=== PATIENT | female | born 1970 | race Caucasian/White ===

== ENCOUNTER 2018-10-31 16:55 | Emergency (ER) | payer OTHER, SELFPAY ==
[2018-10-31] VITALS (7 sets, daily range): BP systolic 142–154; BP diastolic 78–96; PULSE 91–110; RESP 10–18; TEMP 36.4; O2SAT 98–100; BMI 26.1
--- NOTE | 2018-10-31 17:23 | CT_ITS ---
STUDY: CT BRAIN WITHOUT CONTRAST REASON FOR EXAM: Female, 48 years old. Lightheaded. Syncope. RADIATION DOSAGE (If Supplied By Facility): CTDIvol = ( 44.99 ) mGy, DLP = ( 762.36 ) mGycm TECHNIQUE: Transaxial CT imaging of the brain was performed without administration of intravenous contrast material. Individualized dose optimization techniques were used for this CT. COMPARISON: No relevant priors. FINDINGS: Normal soft tissue structures. Normal calvarium. Normal size ventricles and extra-axial spaces for the patient's age. Normal white matter tracts of the cerebral hemispheres. Normal basal ganglia and thalami. Normal brainstem. Normal cerebellum. There is no intracranial hemorrhage. There are no findings of an acute ischemic infarction. Normal visualized paranasal sinuses. CT/Brain/Head without Contrast IMPRESSION: No acute intracranial process. Electronically Signed: Guadalupe Moore MD at 18:14 EDT Tel , Service support ,
--- NOTE | 2018-10-31 17:23 | RAD_ITS ---
STUDY: X-RAY CHEST REASON FOR EXAM: Female, 48 years old. Lightheadedness. TECHNIQUE: Single frontal view of the chest. COMPARISON: May 20, 2013 FINDINGS: There is no new focal consolidation. There is no significant interval change since the prior examination. Normal size heart. Normal mediastinum and aranza. Normal visualized pulmonary arteries. Normal visualized aortic arch and descending thoracic aorta. Normal visualized thoracic spine. Normal visualized ribs, clavicles, and shoulders. There is no demonstrated abnormality of the visualized soft tissue structures of the upper abdomen. RAD/Chest 1 View (Portable) IMPRESSION: No acute cardiopulmonary process. Electronically Signed: Guadalupe Moore MD at 17:36 EDT Tel , Service support ,
--- NOTE | 2018-10-31 17:23 | EKG12_ITS ---
Test Reason : SYNCOPE Blood Pressure : / mmHG Vent. Rate : 107 BPM Atrial Rate : 107 BPM P-R Int : 144 ms QRS Dur : 080 ms QT Int : 348 ms P-R-T Axes : 025 -05 026 degrees QTc Int : 464 ms Sinus tachycardia Moderate voltage criteria for LVH, may be normal variant Borderline ECG Confirmed by HANNAH DOYLE ([id number]), editor & co founder CHANO BROWN ([id number]) on 11/05/2018 2:48:49 PM Referred By: TARSHA Confirmed By:RAMSES DOYLE
[2018-10-31 18:05] LABS: Absolute Lymphocyte Count 2.12 X10^3/ul (0.83-4.51); Basophil# 0.05 X10^3/uL; Basophil% 0.5 % (0-1); Eosinophil# 0.05 X10^3/uL; Eosinophils% 0.5 % (0-5); Hematocrit 37.4 % (37-47); Hemoglobin 12.4 g/dl (12.0-15.0); Lymphocyte # 2.12 X10^3/ul (4.0); Lymphocyte % 21.7 % (19-41); Mean Corp Hgb Conc 33.2 g/gl (32-36); Mean Corpuscular Hgb 28.1 pg (27.0-32.0); Mean Corpuscular Volume 84.8 fL (81-99); Monocyte# 0.56 X10^3/uL; Monocyte% 5.7 % (0-10); Neutrophil # 6.97 X10^3/uL (2.7-7.7); Neutrophil % 71.4 % (47-70); Platelet Count 297 K/mm3 (150-450); RBC Distribution Width CV 14.5 % (11.6-14.6); RBC Distribution Width SD 45.4 fl (35.1-43.9); Red Blood Count 4.41 M/mm3 (4.2-5.4); White Blood Count 9.8 K/mm3 (4.4-11.0)
[2018-10-31 18:06] LABS: POSITIVE COUNT NO; POSITIVE DIFFERENTIAL NO; POSITIVE MORPHOLOGY NO
[2018-10-31 18:22] LABS: Anion Gap 6 (5-15); BUN 11 mg/dL (7-18); BUN/Creat Ratio 14.3 RATIO (10-20); Calcium,Total 8.8 mg/dL (8.5-10.1); Chloride 107 mmol/L (98-107); Creatinine, Serum 0.77 mg/dL (0.55-1.02); EST Glomerular Filtration Rate 85 mL/min (>60); Est Glom Filt Rate - Afr Amer 103 mL/min (>60); Estimated Creatinine Clearance 89.15 ml/min; Glucose 90 mg/dL (74-106); Potassium 3.8 mmol/L (3.5-5.1); Sodium Level 139 mmol/L (136-145)
[2018-10-31 20:03] LABS: D-Dimer Quantitative (DVT/PE) 0.36 FEU/ug/m (0.27-0.49)
--- NOTE | 2018-10-31 20:41 | ED.VISSUMM ---
- ER Visit Summary Date of Service: 10/31/18 Chief Complaint: Near syncope History of Present Illness: The patient is a 48 F with near syncope that she describes as lightheadedness. It started today around 12 PM. Worse with standing. She does have some right occipital pain and nausea. No vertigo. No trauma. Patient has had this in the past. She has had Holter monitors and EP studies. She is unsure what brings her symptoms on. Denies any change in her medications or regimen. Physical Examination: Afebrile and vital signs unremarkable except for a heart rate of 110. Patient is nontoxic and in no acute distress. Cranial nerves grossly intact. Moves all extremities. Heart tachycardic but regular. Lungs clear. Abdomen soft. Skin appears normal in color without diaphoresis or pallor. Test Results: EKG showed sinus rhythm at a rate of 107. CBC normal. CHEM panel normal. Troponin normal. D-dimer normal. Chest x-ray showed nothing acute and CT brain showed nothing acute. Emergency Department Course and Treatment: Patient's work-up is reassuring. She is not having chest pain or shortness of breath. No bleeding. No focal neurologic symptoms. I believe the patient is appropriate for outpatient care. We will follow-up with her doctor. Return for any new or worsening issues. Treatment Plan: As above Disposition: Discharge Impression: 1. Near syncope This note was generated with Vi[employer] dictation software. It may contain incorrect words, spelling, and punctuation that were not noted in review of the chart prior to signing ED Disposition - Plan for ED Patient: Referrals: Curtis Flor MD [Primary Care Provider] -
--- NOTE | 2018-10-31 20:43 | ED.DEP ---
ED Disposition - Plan for ED Patient: Instructions: ED Near Syncope Unkn Referrals: Curtis Flor MD [Primary Care Provider] -
== END 2018-10-31 20:52 | disposition home or self-care (01) ==
LOC: ED 18:54
PROVIDERS: Emergency Provider Emergency Medicine; Family Provider Family Medicine; PCP Family Medicine
DX: R55 Syncope and collapse (principal); R42 Dizziness and giddiness; R11.0 Nausea; F90.9 Attention-deficit hyperactivity disorder, unspecified type
CPT/HCPCS: 70450; 71045; 80048; 84484; 85025; 85379; 93005; 99284

== ENCOUNTER 2019-01-10 10:19 | Day surgery (SDC) | payer OTHER, SELFPAY ==
[2018-10-31 16:56] VITALS: BMI 26.1
--- NOTE | 2018-12-21 13:17 | PCM.HP.BLA ---
History and Physical Date of Admission: 01/10/19 Pre-Op History and Physical ? HPI: The patient is a 48 year old female presenting for pre-operative visit. She is scheduled for?hysteroscopy with endometrial ablation, for?menorrhagia on?01/10/19. ??Procedure discussed along with risks, benefits and complications. ?Other alternatives discussed for management. Consent form signed??Yes.? PAST?MEDICAL?HISTORY PAST MEDICAL HISTORY Diagnosis Date ? Depression ? ? ? PAST?SURGICAL?HISTORY PAST SURGICAL HISTORY Procedure Laterality Date ? PAST SURGICAL HISTORY OF ? 2008 ? splenic artery aneurysm (coiled) -- [facility] ? PAST SURGICAL HISTORY OF ? 1992 ? maxillary sinus polypectomy ? ? CURRENT?MEDICATIONS Current Outpatient Medications Medication Sig Dispense Refill ? Lactobacillus acidophilus (PROBIOTIC ORAL) Take by mouth. ? ? ? amphetamine-dextroamphetamine XR (ADDERALL XR) 20 mg 24 hr capsule Take 20 mg by mouth once daily. ? ? ? FERROUS SULFATE (SLOW FE ORAL) Take ?by mouth. ? ? ? cyanocobalamin (VITAMIN B-12) 1,000 mcg Tab Take 1,000 mcg by mouth once daily. ? ? ? Woodland-3 Fatty Acids-Vitamin E (FISH OIL) 1,000 mg cap Take 1 capsule by mouth. ? ? ? Cholecalciferol, Vitamin D3, (VITAMIN D) 5,000 unit ORAL Tab Take one(1) tablet daily. ? ? ? multivitamins(MULTIPLE VITAMIN TAB) Take one(1) tablet daily. ? 0 ? No current facility-administered medications for this visit.? ? ALLERGIES:?Patient has no known allergies. ? PERSONAL HISTORY:? SOCIAL?HISTORY Social History ??Socioeconomic History ?Marital status: ?Spouse name: Rik ?Number of children: 3 ?Years of education: Not on file ?Highest education level: Not on file ??Social Needs ?Financial resource strain: Not on file ?Food insecurity - worry: Not on file ?Food insecurity - inability: Not on file ?Transportation needs - medical: Not on file ?Transportation needs - non-medical: Not on file ??Occupational History ?Occupation: homemaker ?Occupation: student ??Tobacco Use ?Smoking status: Never Smoker ?Smokeless tobacco: Never Used ??Substance and Sexual Activity ?Alcohol use: Yes ?Comment: rarely ?Drug use: No ?Sexual activity: Yes ?Partners: Male ? control/protection: Other ?Comment: withdrawal ??Other Topics ?Concerns: ?Not on file ??Social History Narrative ?Not on file ? FAMILY HISTORY:? FAMILY?HISTORY FAMILY HISTORY Problem Relation Age of Onset ? Cancer Father ?brain ? Blood Disease Father ?blood clots -- ? Osteoporosis Mother ? ? Psychiatry Brother ?schizophrenia ? Blood Disease Paternal Grandfather ?blood clots ? Diabetes Paternal Grandfather ?unsure ? Colon Cancer Other ?none ? REVIEW OF SYMPTOMS: GENERAL: denies fevers or chills ENDOCRINOLOGY: has not been on steroids Cardiology : denies palpitations or chest pain Respiratory: denies SOB or cough Hematology: denies history of prolonged bleeding or easy bruising or VTE Allergy: Denies history of personal or family history of allergy to anesthesia ? ? PHYSICAL EXAMINATION: ? VITALS:?Blood pressure 110/72, weight 173 lb (78.5 kg), last menstrual period 11/26/2018. ? GENERAL:??The patient is well nourished, well hydrated in no acute distress. ?, The patient is oriented to time, place, and person. NECK:?Supple. No lynphadenopathy, normal thyroid, no thyromegaly. LUNGS:?Clear to auscultation bilaterally. no wheezes, rhonchi or rales HEART:?Regular rate and rhythm, Normal heart sounds and No murmurs or gallops GENITALIA:?Normal external genitalia, Urethral meatus normal, Bladder nontender, normal vagina and normal vaginal tone, normal cervix, normal uterus, size and consistency, normal adnexa without masses or tenderness and perineum WNL ? ? ? IMPRESSION:?menorrhagia, desires endometrial ablation ? PLAN:???The risks/benefits/alternatives and personal involved for the planned?Hysteroscopy with endometrial ablation.??were reviewed with the patient. Her questions were answered to her satisfaction and she desires to proceed. ?Consent was signed. ?I reviewed with her postop instructions and expectations. ? ? I have reviewed and updated past medical and surgical history, medications and allergies? this history and physical was completed in my office on 12/19/2018.
[2019-01-10] VITALS (8 sets, daily range): BP systolic 90–138; BP diastolic 61–80; PULSE 73–111; RESP 14–16; TEMP 36.6–37; O2SAT 95–100; BMI 26.7
[2019-01-10 10:48] LABS: Internal QC Validated? YES +Cl - CLEAR BKGD; Pregnancy, Urine Negative Negative
[2019-01-10] MEDS: Acetaminophen 500 MG Tablet 1000 MG PO (10:53)
[2019-01-10] MEDS: Ketorolac 30 MG/ML Syringe IV (10:53)
[2019-01-10 11:04] LABS: Hematocrit 36.3 % (37-47); Hemoglobin 11.7 g/dL (12.0-15.0); Mean Corp Hgb Conc 32.2 g/dL (32-36); Mean Corpuscular Hgb 27.1 pg (27.0-32.0); Mean Corpuscular Volume 84.2 fL (81-99); Platelet Count 284 K/mm3 (150-450); RBC Distribution Width CV 13.7 % (11.6-14.6); RBC Distribution Width SD 42.5 fl (35.1-43.9); Red Blood Count 4.31 M/mm3 (4.2-5.4); White Blood Count 8.6 K/mm3 (4.4-11.0)
--- NOTE | 2019-01-10 11:42 | DCINST_ITS ---
Discharge Diet: No Restrictions Discharge Activity: Return to Normal Activity, May Shower, May Take a Tub Bath - in 2 weeks. Return to work on:: 01/12/19 May shower in (days): 1 May resume sexual activity in: 2 weeks Lifting Restrictions: none Call your doctor if your incision/area has: Foul Smelling Discharge Call your doctor if you observe: Fever of 101 or Higher, Inability to have a bowel movement, Using more than one pad per hour, Uncontrolled pain Additional Instructions: nothing in your vagina x 2 weeks. No tub baths or swimming x 2 weeks Allergies/Adverse Reactions: Allergies No Known Allergies Allergy (Verified 01/03/19 12:54) Medications to take at Discharge Cholecalciferol (Vitamin D3) [Vitamin D3] 5,000 unit PO DAILY 05/20/13 Dextroamphetamine/Amphetamine [Dextroamp-Amphet ER 30 mg Cap] 1 tab PO DAILY 10/31/18 L.acidoph,Paracasei, B.lactis [Probiotic] 1 ea PO DAILY 01/03/19 Magnesium Oxide [Magnesium] 400 mg PO DAILY 01/03/19 Vitamin B Complex 1 ea PO DAILY 01/03/19 Primary Care Physician: Curtis Flor MD [Primary Care Provider] - Test Results: Test results from this visit will be discussed in further detail at your follow- up appointment, if applicable. Please Follow Up With: Sakina Cedeno MD - [phone] When: as needed. A postop appointment is not needed if you are doing well
--- NOTE | 2019-01-10 12:09 | PCM.OPRPT ---
Report of Operation Date of Procedure: 01/10/19 Pre-Operative Diagnosis: Menorrhagia Post-Operative Diagnosis: Same Surgery/Procedure Performed:: Hysteroscopy with Yaneli endometrial ablation Description of Surgical Findings:: Normal-appearing uterus, cervix and vagina. embedded software programmer: None Type of Anesthesia:: MAC/Supplemental/Local Special Medications: None Specimen's removed: None Drains: None Estimated Blood Loss (mL): 10 Fluids Replaced: 700cc Description of Procedure: The patient was taken to the OR where she was prepped and draped in dorsal lithotomy position. The weighted speculum was placed in the vagina and the anterior lip of the cervix was grasped with a single-tooth tenaculum. A paracervical block was administered with 1% lidocaine with 1-100,000 epinephrine solution. The cervix was dilated serially with Hegar dilators. The 5mm hysteroscope was placed into the uterine cavity and the above findings were noted. Bilateral tubal ostia were identified. The uterus sounded to 8.5cm and the cervical length was 4 cm. The endometrial cavity length was 4.5cm. The hysteroscope was removed. The Yaneli device was set to 4.5cm. The instrument was then seated into the endometrial cavity and the indicator was in the green. The cervical seal balloon was inflated and the uterine integrity test was passed. The ablation procedure was initiated and completed without interruption. During the ablation procedure gentle traction was held on the tenaculum and the Yaneli device was held up against the uterine fundus. When the ablation procedure was completed the Yaneli was removed. The tenaculum was removed and the tenaculum site was noted to be hemostatic. All sponge and needle counts were correct. A vaginal sweep was performed by . The patient was awakened and taken to the recovery room in stable condition. Hysteroscopic ins: 300cc normal saline Hysteroscopic outs:200cc Findings: Endometrial cavity: Normal, no fibroids or polyps noted Cervix: Normal Vagina: Normal Grafts/Implants Used: none - Complications none - Admit VTE Documentation VTE Present on Admission: No VTE Mechan Device Prophylaxis: SCD's VTE Pharm Prophylaxis ordered?: No Reason prophylaxis not ordered:: Procedure Not Indicated
== END 2019-01-10 14:05 | disposition home or self-care (01) ==
LOC: SDC 10:20 → AC 10:20
PROVIDERS: Family Provider Family Medicine; PCP Family Medicine; Referring Provider Obstetrics & Gynecology; Visit Provider Obstetrics & Gynecology
PROC: 0U5B8ZZ Destruction of Endometrium, Via Natural or Artificial Opening Endoscopic (ICD-10-PCS; CPT 58558; principal; 2019-01-10 11:45)
DX: N92.0 Excessive and frequent menstruation with regular cycle (principal); F32.9 Major depressive disorder, single episode, unspecified
CPT/HCPCS: 58563; 81025; 85027; J7120; J2405

== ENCOUNTER → 2020-01-15 11:24 | Outpatient (CLI) | payer OTHER, SELFPAY ==
[2019-01-10 10:44] VITALS: BMI 26.7
[2020-01-15 15:22] LABS: Absolute Lymphocyte Count 1.58 X10^3/uL (0.83-4.51); Absolute Neutrophil Count 6.8 X10^3/uL (2.0-7.7); Basophil# 0.08 X10^3/uL; Basophil% 0.9 % (0-1); Eosinophil# 0.07 X10^3/uL; Eosinophils% 0.8 % (0-5); Hematocrit 42.1 % (37-47); Hemoglobin 13.8 g/dL (12.0-15.0); Lymphocyte # 1.58 X10^3/ul (4.0); Lymphocyte % 17.4 % (19-41); Mean Corp Hgb Conc 32.8 g/dL (32-36); Mean Corpuscular Hgb 31.7 pg (27.0-32.0); Mean Corpuscular Volume 96.8 fL (81-99); Mean Platelet Vol. 12.5 fl (6.2-12.0); Monocyte# 0.51 X10^3/uL; Monocyte% 5.6 % (0-10); NRBC Flagged by Analyzer 0 % (0-5); Neutrophil # 6.79 X10^3/uL (2.7-7.7); Neutrophil % 74.5 % (47-70); Platelet Count 279 K/mm3 (150-450); RBC Distribution Width CV 12.8 % (11.6-14.6); RBC Distribution Width SD 45.6 fl (35.1-43.9); Red Blood Count 4.35 M/mm3 (4.2-5.4); White Blood Count 9.1 K/mm3 (4.4-11.0)
[2020-01-15 15:41] LABS: Vitamin B12 450 pg/mL (211-911); Vitamin D,25 Hydroxy 24.2 ng/mL
[2020-01-15 15:58] LABS: AST(SGOT) 15 U/L (15-37); Alanine Aminotransfer ALT/SGPT 24 U/L (13-56); Alkaline Phosphatase 103 U/L (45-117); Anion Gap 4 (5-15); BUN 17 mg/dL (7-18); BUN/Creat Ratio 21.4 RATIO (10-20); Calcium,Total 8.7 mg/dL (8.5-10.1); Chloride 106 mmol/L (98-107); Cholesterol 209 mg/dL (200); EST Glomerular Filtration Rate 81 mL/min (>60); Est Glom Filt Rate - Afr Amer 98 mL/min (>60); Globulin 3.9 g/dL (2.2-4.2); Glucose 86 mg/dL (74-106); High Density Lipoprotein 62 mg/dL; Magnesium 2.6 mg/dL (1.6-2.6); Potassium 4.2 mmol/L (3.5-5.1); Protein, Total 7.9 g/dL (6.4-8.2); Sodium Level 136 mmol/L (136-145); T4 Free Direct 0.89 ng/dL (0.76-1.46); Thyroid Stim Hormone (TSH) 3.23 uIU/mL (0.358-3.74); Triglycerides 158 mg/dL; Very Low Density Lipoprotein 32 mg/dL (5-40)
== END ==
LOC: LAB.FUTURE 11:25 → LAB 14:52
PROVIDERS: PCP Family Medicine; Visit Provider Family Medicine
DX: F90.9 Attention-deficit hyperactivity disorder, unspecified type (principal); Z51.81 Encounter for therapeutic drug level monitoring; R53.83 Other fatigue; E55.9 Vitamin D deficiency, unspecified; I49.8 Other specified cardiac arrhythmias
CPT/HCPCS: 36415; 80053; 80061; 82306; 82607; 83735; 84439; 84443; 85025

== ENCOUNTER → 2020-03-26 15:17 | Outpatient (CLI) | payer OTHER, SELFPAY ==
[2019-01-10 10:44] VITALS: BMI 26.7
[2020-03-26 16:57] LABS: Absolute Lymphocyte Count 1.59 X10^3/uL (0.83-4.51); Absolute Neutrophil Count 7.1 X10^3/uL (2.0-7.7); Basophil# 0.04 X10^3/uL; Basophil% 0.4 % (0-1); Eosinophil# 0.09 X10^3/uL; Eosinophils% 0.9 % (0-5); Hematocrit 39.9 % (37-47); Hemoglobin 13.4 g/dL (12.0-15.0); Lymphocyte # 1.59 X10^3/ul (4.0); Lymphocyte % 16.7 % (19-41); Mean Corp Hgb Conc 33.6 g/dL (32-36); Mean Corpuscular Hgb 31.4 pg (27.0-32.0); Mean Corpuscular Volume 93.4 fL (81-99); Monocyte# 0.68 X10^3/uL; Monocyte% 7.2 % (0-10); NRBC Flagged by Analyzer 0 % (0-5); Neutrophil # 7.08 X10^3/uL (2.7-7.7); Neutrophil % 74.5 % (47-70); Platelet Count 292 K/mm3 (150-450); RBC Distribution Width CV 12.1 % (11.6-14.6); RBC Distribution Width SD 41.4 fl (35.1-43.9); Red Blood Count 4.27 M/mm3 (4.2-5.4); White Blood Count 9.5 K/mm3 (4.4-11.0)
== END ==
PROVIDERS: PCP Family Medicine; Visit Provider Family Medicine
DX: R23.3 Spontaneous ecchymoses (principal)
CPT/HCPCS: 36415; 85025

== ENCOUNTER → 2020-05-07 16:30 | Outpatient (CLI) | payer OTHER, SELFPAY ==
[2020-05-07 16:01] VITALS: BMI 26.7
--- NOTE | 2020-05-07 16:32 | RAD_ITS ---
STUDY: X-RAY - RIGHT FOOT CLINICAL: Female, 50 years old. PATIENT RAN RIGHT TOES/FOOT INTO WALL. PAIN RIGHT 4TH AND 5TH DIGITS. TECHNIQUE: 3 view(s) of the foot. COMPARISON: None. FINDINGS: Normal talus, and tarsal bones. Small plantar calcaneal spur Normal visualized subtalar, talonavicular, calcaneocuboid, tarsal and tarsometatarsal articulations. Normal metatarsi. Normal metatarsophalangeal joint of the great toe. Normal tibial and fibular sesamoid bones. Normal interphalangeal joint of the great toe. Normal phalanges of the great toe. Normal second through fifth metatarsophalangeal joints. Normal interphalangeal joints and phalanges of the lesser toes. The soft tissue structures are unremarkable. RAD/Foot min 3 Views IMPRESSION: No evidence for acute fracture or dislocation Electronically Signed: Don Salguero MD at 17:26 EST , Service support ,
== END ==
PROVIDERS: PCP Family Medicine; Referring Provider Physician Assistant; Visit Provider Physician Assistant
DX: S99.921A Unspecified injury of right foot, initial encounter (principal)
CPT/HCPCS: 73630

== ENCOUNTER → 2022-09-14 | Outpatient (CLI) | payer BC, SELFPAY ==
[2022-09-18 04:06] LABS: Clam <0.10 kU/L (Class 0); Codfish <0.10 kU/L (Class 0); Corn <0.10 kU/L (Class 0); Egg, White <0.10 kU/L (Class 0); Milk (Cow) <0.10 kU/L (Class 0); Peanut <0.10 kU/L (Class 0); SCALLOP <0.10 kU/L (Class 0); Shrimp 0.15 kU/L (Class 0/I); Soybean <0.10 kU/L (Class 0); Walnut, (Food) <0.10 kU/L (Class 0); Wheat <0.10 kU/L (Class 0)
[2022-09-18 11:17] LABS: SESAME SEED <0.10 kU/L (Class 0)
[2022-09-20 11:10] LABS: Immunoglobulin E 43 IU/mL (6-495)
== END | disposition home or self-care (01) ==
LOC: MTLAB 16:30
PROVIDERS: PCP Family Medicine; Referring Provider Otolaryngology Otolaryngic Allergy; Visit Provider Otolaryngology Otolaryngic Allergy
DX: J30.5 Allergic rhinitis due to food (principal)
CPT/HCPCS: 36415; 82785; 86003

== ENCOUNTER → 2022-10-24 | Outpatient (CLI) | payer BC, SELFPAY ==
[2022-10-24 18:06] LABS: Absolute Lymphocyte Count 1.61 X10^3/uL (0.83-4.51); Absolute Neutrophil Count 5.1 X10^3/uL (2.0-7.7); Basophil# 0.05 X10^3/uL; Basophil% 0.7 % (0-1); Eosinophil# 0.06 X10^3/uL; Eosinophils% 0.8 % (0-5); Hematocrit 40.6 % (37-47); Hemoglobin 13.8 g/dL (12.0-15.0); Lymphocyte # 1.61 X10^3/ul (0.83-4.51); Lymphocyte % 22.1 % (19-41); Mean Corpuscular Hgb 32.3 pg (27.0-32.0); Mean Corpuscular Volume 95.1 fL (81-99); Mean Platelet Vol. 11.5 fl (6.2-12.0); Monocyte# 0.47 X10^3/uL; Monocyte% 6.5 % (0-10); NRBC Flagged by Analyzer 0 % (0-5); Neutrophil # 5.05 X10^3/uL (2.7-7.7); Neutrophil % 69.4 % (47-70); Platelet Count 289 K/mm3 (150-450); RBC Distribution Width CV 12.2 % (11.6-14.6); RBC Distribution Width SD 41.9 fl (35.1-43.9); Red Blood Count 4.27 M/mm3 (4.2-5.4); White Blood Count 7.3 K/mm3 (4.4-11.0)
[2022-10-24 18:32] LABS: Vitamin D,25 Hydroxy 44.5 ng/mL
[2022-10-24 19:01] LABS: ALB/GLOB Ratio 1.1 RATIO (0.9-2.4); AST(SGOT) 20 U/L (15-37); Alanine Aminotransfer ALT/SGPT 31 U/L (13-56); Albumin, Serum 4.1 g/dL (3.2-5.0); Alkaline Phosphatase 99 U/L (45-117); Anion Gap 11 (5-15); BUN 23 mg/dL (7-18); BUN/Creat Ratio 31.2 RATIO (10-20); Calcium,Total 9.3 mg/dL (8.5-10.1); Chloride 104 mmol/L (98-107); Cholesterol 189 mg/dL (200); Creatinine, Serum 0.74 mg/dL (0.55-1.02); EST Glomerular Filtration Rate 87 mL/min (>60); Est Glom Filt Rate - Afr Amer 106 mL/min (>60); Globulin 3.6 g/dL (2.2-4.2); Glucose 81 mg/dL (74-106); High Density Lipoprotein 63 mg/dL; Potassium 3.6 mmol/L (3.5-5.1); Protein, Total 7.7 g/dL (6.4-8.2); Sodium Level 138 mmol/L (136-145); Triglycerides 78 mg/dL; Very Low Density Lipoprotein 16 mg/dL (5-40)
== END | disposition home or self-care (01) ==
LOC: BFHLAB 16:19
PROVIDERS: PCP Nurse Practitioner Family; Referring Provider Nurse Practitioner Family; Visit Provider Nurse Practitioner Family
DX: Z00.00 Encounter for general adult medical examination without abnormal findings (principal); E55.9 Vitamin D deficiency, unspecified
CPT/HCPCS: 36415; 80053; 80061; 82306; 85025

== ENCOUNTER → 2022-11-09 | Outpatient (CLI) | payer BC, SELFPAY ==
[2022-11-16 10:09] LABS: Age Gdln ACOG Testing 30-65 (.); HPV APTIMA, High Risk Negative (Negative)
[2022-11-16 20:47] LABS: HPV Reflexed? NOT INDICATED
== END | disposition home or self-care (01) ==
PROVIDERS: PCP Nurse Practitioner Family; Referring Provider Nurse Practitioner Family; Visit Provider Nurse Practitioner Family
DX: Z12.4 Encounter for screening for malignant neoplasm of cervix (principal); Z01.419 Encounter for gynecological examination (general) (routine) without abnormal findings
CPT/HCPCS: 88175; G0145

== ENCOUNTER → 2022-11-16 | Outpatient (CLI) | payer BC, SELFPAY ==
--- NOTE | 2022-11-16 15:54 | BI_ITS ---
MAMMOGRAPHY - BILATERAL SCREENING REASON FOR EXAM: Female, 52 years old. Routine annual screening examination. PERTINENT HISTORY: Non-contributory. TECHNIQUE: Digital bilateral breast reese (3D mammographic acquisition) in the CC and MLO projections. 2-D mediolateral oblique (MLO) and craniocaudad (CC) views of both breasts were obtained. CAD: Full Field Digital Mammography with Computer Added Detection was performed. COMPARISON: Comparison is made with prior study dated April 20, 2016. FINDINGS: Breast Composition: The breasts are extremely dense, which lowers the sensitivity of mammography. Once again, there are multiple ill-defined nodular densities both breasts suggestive of cysts. The largest nodule in the left breast measures 2.5 cm x 2.1 cm. This is in the inferior central portion of the breast. Scattered nodular densities also seen in the right breast. The largest nodule measures 1.6 cm x 1.2 cm. No other significant abnormalities are identified. BI/SCRN MAMM (CAD)W/REESE BILAT IMPRESSION: Multiple bilateral well-defined nodular densities which have decreased in size as compared to prior study. A follow-up sonogram is recommended for further evaluation. ASSESSMENT CATEGORY: BIRADS Category 0: Incomplete. Need additional imaging evaluation. A letter regarding these results will be sent to the patient by the facility within 30 days. Approximately 10% of breast cancers are not detected by mammography. A normal mammogram should not delay biopsy of a clinically suspicious abnormality. [id number] Pending Final Proof Editing
== END | disposition home or self-care (01) ==
LOC: OPBI 15:52
PROVIDERS: PCP Nurse Practitioner Family; Referring Provider Nurse Practitioner Family; Visit Provider Nurse Practitioner Family
DX: Z12.31 Encounter for screening mammogram for malignant neoplasm of breast (principal)
CPT/HCPCS: 77063; 77067

== ENCOUNTER → 2022-11-28 | Outpatient (CLI) | payer BC, SELFPAY ==
--- NOTE | 2022-11-28 08:46 | US_ITS ---
STUDY: ULTRASOUND BREAST - RIGHT REASON FOR EXAM: Female, 52 years old. Abnormal screening mammogram. TECHNIQUE: Axial and longitudinal images of the RIGHT breast were performed with a high resolution ultrasound transducer. # OF IMAGES: [id number] COMPARISON: Comparison is made with prior mammogram dated November 16, 2022 and prior sonogram of the right breast dated May 02, 2016. FINDINGS: RIGHT Breast: Several cysts are seen. The largest cyst measures 1.4 cm x 1.6 x 0.7 cm. This is at the 6:00 position of the breast at 1 cm from nipple. This also evidence of a 9 mm x 9 mm x 8 mm hypoechoic nodule at the 1:00 position approximately 3 cm from nipple. This is not a typical cyst and may represent an hemorrhagic cyst. Biopsy is recommended. IMPRESSION: Scattered cysts as described. 9 mm x 9 mm x 8 mm hypoechoic nodule at the 1:00 position breast at 3 cm from nipple. This is not a typical cyst and may represent an hemorrhagic cyst. Tissue sampling is recommended. ASSESSMENT CATEGORY: BIRADS Category 4: Suspicious - Biopsy Should Be Considered. A letter regarding these results will be sent to the patient by the facility within 30 days. Electronically Signed: Torin Ceballos MD at 10:35 EDT , STUDY: ULTRASOUND BREAST - LEFT REASON FOR EXAM: Female, 52 years old. Abnormal screening mammogram. TECHNIQUE: Axial and longitudinal images of the LEFT breast were performed with a high resolution ultrasound transducer. # OF IMAGES: [id number] COMPARISON: Comparison is made with prior mammogram dated May 02, 2016. FINDINGS: LEFT Breast: Scattered cysts are seen. The largest cyst measures 2.9 cm x 2.1 cm x 1.5 centimeter. This is at the 6:00 position of the breast is sick sinus from nipple. There is also evidence of a 1.1 cm x 1.2 cm x 0.7 cm hypoechoic nodule at the 3:00 position of the breast at 7 cm from the nipple. Biopsy recommended. US/Breast Complete Unilateral IMPRESSION: Scattered cysts as described. 1.1 cm x 1.2 cm x 0.7 cm hypoechoic nodule at the 3:00 position of the breast at 7 cm from the nipple. Biopsy recommended. ASSESSMENT CATEGORY: BIRADS Category 4: Suspicious - Biopsy Should Be Considered. A letter regarding these results will be sent to the patient by the facility within 30 days. Electronically Signed: Torin Ceballos MD at 10:37 EDT ,
== END | disposition home or self-care (01) ==
LOC: OPUS 08:42
PROVIDERS: PCP Nurse Practitioner Family; Referring Provider Nurse Practitioner Family; Visit Provider Nurse Practitioner Family
DX: R92.8 Other abnormal and inconclusive findings on diagnostic imaging of breast (principal)
CPT/HCPCS: 76641

== ENCOUNTER → 2022-12-19 | Outpatient (CLI) | payer BC, SELFPAY ==
--- NOTE | 2022-12-19 | IMM_PTH ---
PATIENT: EMRE BERMAN LOC: [facility] U#:[id number] AGE/SX: 52/F ROOM: RE12/19/[address]: Dr. Venkata Francisco MD : 1970 BED: DIS: 12/19/2022 SPEC #: [id number] RECD: 12/22/22 14:05 STATUS: SUDARSHAN REQ #: [id number] FERNANDA: 12/19/22 00:[address]: Venkata Francisco DEPT: IMMUNOHISTOCHEMISTRY RECD BY: Leigh Ann Lam ENTERED: 12/22/22 14:06 SP TYPE: IMMUNO OTHR DR: Delicia Feldman, MANAGER PRODUCT MANAGEMENT-C Tissues: B - Right breast, NOS C - Right breast, NOS Procedures: SMA (add) Calponin-1(initial) P40 (add) PHYSICIAN & INSTITUTION [place] [id number] SPECIMEN INFORMATION: Tissue Source: B - Right breast 10 o'clock, C - Right breast 1 o'clock Clinical Info: Breast mass x2 Specimen Number: [id number] B & C CPT code: 12063 x2, 05802 x4 METHODOLOGY: Deparaffinized sections of prefer/formalin-fixed tissue or PAP/DQ stained slides are incubated with monoclonal/polyclonal antibodies/oligonucleotide probes. Localization is made via biotin free immunoperoxidase method. Appropriate controls are performed and reacted as expected. Results on target cell population are indicated in the following table: RESULTS: ANTIBODY / CLONE RESULT Block B P40 (BC28) positive Calponin-1 (TK143R) positive Actin (1A4) positive Block C P40 (BC28) positive Calponin-1 (OH434S) positive Actin (1A4) positive These tests were developed and their performance characteristics determined by [facility]. They may not have been cleared or approved by the U.S. Food and Drug Administration. The FDA has determined that such clearance or approval is not necessary. The above immunohistochemical/dualISH markers are ordered and reviewed by the Pathologist. INTERPRETATION: B. Right breast 10 o'clock, biopsy: Benign breast tissue. C. Right breast 1 o'clock, biopsy: Benign breast tissue. AM:amy 12/23/2022
--- NOTE | 2022-12-19 12:16 | US_ITS ---
ULTRASOUND GUIDED CORE BIOPSY REASON FOR EXAM: Female, 52 years old. BILATERAL BREAST MASS PERTINENT HISTORY: Non-contributory. COMPARISON: Comparison is made with prior sonogram dated November 28, 2022. TECHNIQUE: (All elements of maximal sterile barrier technique followed, including US elements as applicable) Under direct sonographic guidance, the surgeon performed core biopsies of a hypoechoic nodule measuring 9 mm x 10 mm x 8 mm at the 1:00 position of the breast at 3 cm from the nipple.. IMPRESSION: Ultrasound guided core biopsy of a mass in the RIGHT breast at the 1:00 position of the breast at 3 cm from the nipple. without complication. Electronically Signed: Torin Ceballos MD at 14:41 EDT , ULTRASOUND GUIDED CORE BIOPSY REASON FOR EXAM: Female, 52 years old. BILATERAL BREAST MASS PERTINENT HISTORY: Abnormal ultrasound. COMPARISON: Comparison is made with prior sonogram dated November 28, 2022. TECHNIQUE: (All elements of maximal sterile barrier technique followed, including US elements as applicable) Under direct sonographic guidance, the surgeon performed core biopsies of the 8 mm x 9 mm x 6 mm hypoechoic nodule at the 10:00 position of the breast. The patient Tolerated the entire procedure without immediate complication and was discharged from the breast imaging department in good condition. IMPRESSION: Ultrasound guided core biopsy of a mass in the 10:00 position of the breast breast without complication. Electronically Signed: Torin Ceballos MD at 14:42 EDT , ULTRASOUND GUIDED CORE BIOPSY REASON FOR EXAM: Female, 52 years old. BILATERAL BREAST MASS PERTINENT HISTORY: Hypoechoic nodule at the 3:00 position of the left breast. COMPARISON: Comparison is made with prior sonogram of the left breast dated November 28, 2022. TECHNIQUE: (All elements of maximal sterile barrier technique followed, including US elements as applicable) Upon arrival to the breast imaging department the patient''s identification was confirmed and the LEFT breast was marked according to time-out protocol. Ultrasound guided core biopsy and clip placement, to include potential risks and complications, was explained in full to the patient. Written and verbal consent were obtained prior to initiation of the procedure. The LEFT breast was prepped and draped in standard sterile fashion and local anesthesia was obtained with 1% buffered lidocaine. A small dermatotomy was then made to introduce the core biopsy needle. Under ultrasound guidance multiple core samples were obtained with a gauge needle and submitted in formalin for pathology. A titanium clip was then deployed into the biopsy cavity under ultrasound guidance. Upon completion of the procedure hemostasis was obtained and sterile dressing was applied. The patient tolerated the entire procedure without immediate complication and was discharged from the breast imaging department in good condition. US/US Breast Biopsy 1st Lesion IMPRESSION: Ultrasound guided core biopsy of a mass in the LEFT breast at the 3:00 position of the breast at 7 cm from the nipple without complication. Electronically Signed: Torin Ceballos MD at 14:43 EDT ,
--- NOTE | 2022-12-19 12:30 | BRBX_PTH ---
PATIENT: EMRE BERMAN LOC: OPUS U#:[id number] AGE/SX: 52/F ROOM: RE12/19/[address]: Dr. Venkata Francisco MD : 1970 BED: DIS: 12/19/2022 SPEC #: [id number] RECD: 12/19/22 14:01 STATUS: SUDARSHAN SCOTT #: [id number] FERNANDA: 12/19/22 12:[address]: Venkata Francisco DEPT: SURGICAL PATHOLOGY RECD BY: Rosa Sow ENTERED: 12/21/22 09:54 SP TYPE: BREAST BX OTHR DR: Delicia Feldman, DEHYDRATOR-C Tissues: A - Right breast, NOS B - Right breast, NOS C - Right breast, NOS Procedures: Surgery Specimen Level IV HEADER OPERATION: Right breast biopsy PRE-OP DIAGNOSIS: Breast mass x2 TISSUE SUBMITTED: A - Left breast 3 o'clock, B - Right breast 10 o'clock, C - Right breast, 1 o'clock ISCHEMIC TIME: 30 seconds FIXATION TIME: 7 hours MICROSCOPIC DIAGNOSIS A. Left breast at 3 o'clock, needle core biopsy: Fibrocystic change, non-proliferative with associated microcalcifications. Focal intraductal hyperplasia without atypia. Focal changes of cyst rupture and associated reactive change. No evidence of malignancy. B. Right breast at 10 o'clock, needle core biopsy: Focal intraductal hyperplasia without atypia. Focal adenosis. Intraductal papilloma. See comment. C. Right breast at 1 o'clock, needle core biopsy: Focal intraductal hyperplasia without atypia. Nonproliferative fibrocystic change. Involutional change. Banal microcalcifications. See comment. AM:amy 12/21/2022 COMMENT B & C. Immunohistochemistry ([id number]) supports the above diagnosis. Case has been reviewed in consultation with Dr. Calderon who concurs with the above diagnosis. IDC:SJ MICROSCOPIC DESCRIPTION Slides are reviewed. GROSS DESCRIPTION A - Received in fixative is one container labeled with the patient's name and designated left breast 3 o'clock. The specimen consists of multiple elongated fragments of huerta soft tissue measuring in aggregate 2.0 x 0.3 x 0.1 cm. The specimen is totally submitted in one cassette. B - Received in fixative is one container labeled with the patient's name and designated right breast 10 o'clock. The specimen consists of multiple elongated fragments of huerta-yellow fibroadipose tissue measuring in aggregate 2.0 x 0.4 x 0.1 cm. The specimen is totally submitted in one cassette. C - Received in fixative is one container labeled with the patient's name and designated right breast, 1 o'clock. The specimen consists of multiple elongated fragments of huerta-yellow fibroadipose tissue measuring in aggregate 1.5 x 0.5 x 0.1 cm. The specimen is totally submitted in one cassette. / SJ:rg 12/19/2022 TC:5 CPT: 92359 x3
--- NOTE | 2022-12-19 13:44 | PCM.OPRPT ---
Report of Operation Date of Procedure: 12/19/22 Pre-Operative Diagnosis: 2 lesions of right breast and 1 lesion of left breast Post-Operative Diagnosis: Same Surgery/Procedure Performed:: Ultrasound-guided core needle biopsy of the right breast x2 lesions and left breast x1 lesion Specimen's removed: Biopsy of 2 breast lesions on the right and 1 on the left Description of Procedure: The patient was brought into the ultrasound suite and the right breast was prepped and draped in usual sterile fashion. Ultrasound was used to localize the 2 masses. One was at the 10 o'clock position and one was at the 1 o'clock position. An area of skin lateral to this was injected with local anesthetic. Small steffanie was made with a scalpel. Mammotome needle was used to biopsy the 10:00 mass. A clip was then placed into this mass under direct visualization. Next another incision was made more medial to this and the 1:00 mass was biopsied using mammotome. A clip was then placed in this mass. A Steri-Strip was placed over each incision as well as an OpSite. Next the patient was turned and the left breast was inspected. Medial to the area an area of skin was injected with local anesthetic and a small steffanie was made. Using the 14-gauge core biopsy needle the mass was biopsied. Clip was then placed into this. An OpSite and Steri-Strip were placed over this incision. Patient tolerated all 3 biopsies well.
== END | disposition home or self-care (01) ==
PROVIDERS: PCP Nurse Practitioner Family; Referring Provider Surgery; Visit Provider Surgery
DX: N63.10 Unspecified lump in the right breast, unspecified quadrant (principal); R92.0 Mammographic microcalcification found on diagnostic imaging of breast; D24.1 Benign neoplasm of right breast; N60.11 Diffuse cystic mastopathy of right breast
CPT/HCPCS: 19083; 19084; 88305; 88341; 88342

== ENCOUNTER 2023-01-18 16:00 | Outpatient (RCR) | payer BC, SELFPAY ==
--- NOTE | 2022-11-23 18:06 | HP.PTEVAL ---
Patient's Visit Information EMRE BERMAN is a 52 year old F referred to Physical Therapy by Dr. Marcos Louis DO with a diagnosis of L Pain in upper arm. Date of Evaluation: 11/23/22 Physical Therapist: MAUDE Kaiser - Visit Plan Frequency: 2x /Week Duration: 6 Weeks Plan: 2X/ week for 6 weeks for L shoulder AAROM/AROM, RC and scapular strength, postural exercises with HEP. HEP: green mid rows to take with her on her vacation - Subjective Pt notices that she had arm pain when she raises her arm above her head to sleep it would hurt. Now it is stiff and her ROM has decreased. She has not golfed this year because she wants to get it checked out before she golfs. She has N&T in her L fingers. She is not 100% sure it is related to her shoulder. She can sleep on her l shoulder. The pain is down the lateral arm. She has no pain in the actual shoulder joint itself. She is R handed. She does not feel weakness in her L arm. She has no neck pain. Icing does not help. - Pain L shoulder Pain Intensity (Out of 10): 2 - Objective R handed: R 90# L 65#. UE MMT: R flexion 16.3, abd 14.6, ER 15.3, IR 11.6. L flexion 8.1, abd 9.1, ER 12.2, IR 11.7. UE AROM: R shoulder flex 180, R shoulder abd, 180, ER 72, IR to T12. L shoulder flex 150, L shoulder ABD, 170 (painful arc but can push past the 120), ER 60, IR to T 12. Posture: sit with rounded shoulders and slightly fw head. HK L Questionable. Empty can -L. Palpation: No tenderness under the acromion or on the lateral arm. Neck AROM: Flexion 100%, Ext 75%, SB 100% B, Rot B 100%. Bicep reflex 2+/3 B - Balance/Special Test Scores Quick DASH Score: 11.3625 - Goals Goal 1:: I HEP Goal Time Frame: 4-6 Weeks Goal 2:: Be able to raise her L arm into full AROM with pain free Goal Time Frame: 4-6 Weeks Goal 3:: Increase L shoulder strength (at time of the eval: R flexion 16.3, abd 14.6, ER 15.3, IR 11.6. L flexion 8.1, abd 9.1, ER 12.2, IR 11.7) Goal Time Frame: 4-6 Weeks Goal 4:: Pt to be more aware of her posture throughout the day and sleeping posture Goal Time Frame: 4-6 Weeks Goal 5:: Increase L arm AROM (at the time of the eval: R shoulder flex 180, R shoulder abd, 180, ER 72, IR to T12. L shoulder flex 150, L shoulder ABD, 170 (painful arc but can push past the 120), ER 60, IR to T 12) Goal Time Frame: 4-6 Weeks - Rehabilitation Potential Rehabilitation Potential: Good - Anticipated Interventions Patient/Client Instruction: Educate patient on: Condition, Plan of Care For the Purpose of:: To decrease pain, To increase ROM, To improve nutrient delivery to tissue, To improve muscle performance and motor function, To improve ability to perform ADL's, To increase tolerance to activity/condition/position, To improve performance and independence with ADL's, To decrease level of supervision to perform tasks, To improve ability of physical actions for home/community/work/leisure, To improve health of tissue, To decrease soft tissue restriction, To increase flexibility/ROM Therapeutic Exercise to Include: Strength training, Postural training, Flexibilty training, Neuromotor development, Passive ROM, Active ROM, Scapular Strength/Stabilization For the Purpose of:: To decrease pain, To decrease swelling/inflammation, To increase ROM, To improve nutrient delivery to tissue, To improve muscle performance and motor function, To improve ability to perform ADL's, To increase tolerance to activity/condition/position, To improve performance and independence with ADL's, To decrease level of supervision to perform tasks, To improve ability of physical actions for home/community/work/leisure, To improve health of tissue, To decrease soft tissue restriction, To increase flexibility/ROM IF ES: Yes - PRN Cryotherapy (ice pack, ice massage): Yes - PRN Thermo therapy (hot pack): Yes - PRN Ultrasound (thermal/non thermal): Yes - PRN For the Purpose of:: To decrease pain, To decrease swelling/inflammation, To improve nutrient delivery to tissue, To increase oxygenation perfusion Thank you for the opportunity to evaluate your patient. For Medicare and Medicare HMO plans, please review the plan of care and approve it. It will need to be FAXED BACK to us at [phone] for Medicare purposes. For Medicare only, by signing this I certify the plan of care. Please let me know if there are questions or concerns regarding this plan of care. Physician Signature: Date:
--- NOTE | 2022-12-28 17:22 | HP.PTREVAL ---
Re-Evaluation Intro: Dr. Marcos Louis, DO, It has been my pleasure to treat EMRE BERMAN over the last 8 visits for L Pain in upper arm. Please see the progress note below for an update on the physical therapy plan of care! Subjective Subjective: Pt had some biopsies in her breasts and she is concerned about reddness and a hard lump at biopsy point and she will contact Dr. Pt feels that her L shoulder is better. She still has some discomfort with some movements turn steering wheel and overhead movements (IR)... The pain is still daily but not as acute. She is doing some stretching at home Objective Objective/Function: L shoulder flex 175, L shoulder ABD, 180 (slight painful arc but can push past), ER 64, IR to T4 L flexion 9.1, abd 9.1, ER 14.4, IR 12.4 Plan Plan Plan: Issue bands for home next visit 2X/ week for 8 weeks for L shoulder AAROM/AROM, RC and scapular strength, postural exercises with HEP. Balance/Gait/Functional tests Balance/Special Test Scores Quick DASH Score: 15.9075 Goals Goals Goal 1:: I HEP Goal Time Frame: 4-6 Weeks Goal 2:: Be able to raise her L arm into full AROM with pain free Goal Time Frame: 4-6 Weeks Goal Progress: Progressing Goal 3:: Increase L shoulder strength (at time of the eval: R flexion 16.3, abd 14.6, ER 15.3, IR 11.6 L flexion 8.1, abd 9.1, ER 12.2, IR 11.7) Goal Time Frame: 4-6 Weeks Goal 4:: Pt to be more aware of her posture throughout the day and sleeping posture Goal Time Frame: 4-6 Weeks Goal Progress: Goal Met Goal 5:: Increase L arm AROM (at the time of the eval: R shoulder flex 180, R shoulder abd, 180, ER 72, IR to T12 L shoulder flex 150, L shoulder ABD, 170 (painful arc but can push past the 120), ER 60, IR to T 12) Goal Time Frame: 4-6 Weeks Anticipated Interventions Anticipated Interventions Patient/Client Instruction: Educate patient on: Condition and Plan of Care For the Purpose of:: To decrease pain, To increase ROM, To improve nutrient delivery to tissue, To improve muscle performance and motor function, To improve ability to perform ADL's, To increase tolerance to activity/condition/position, To improve performance and independence with ADL's, To decrease level of supervision to perform tasks, To improve ability of physical actions for home/community/work/leisure, To improve health of tissue, To decrease soft tissue restriction and To increase flexibility/ROM Therapeutic Exercise to Include: Strength training, Postural training, Flexibilty training, Neuromotor development, Passive ROM, Active ROM and Scapular Strength/Stabilization For the Purpose of:: To decrease pain, To decrease swelling/inflammation, To increase ROM, To improve nutrient delivery to tissue, To improve muscle performance and motor function, To improve ability to perform ADL's, To increase tolerance to activity/condition/position, To improve performance and independence with ADL's, To decrease level of supervision to perform tasks, To improve ability of physical actions for home/community/work/leisure, To improve health of tissue, To decrease soft tissue restriction and To increase flexibility/ROM IF ES: Yes (PRN) Cryotherapy (ice pack, ice massage): Yes (PRN) Thermo therapy (hot pack): Yes (PRN) Ultrasound (thermal/non thermal): Yes (PRN) For the Purpose of:: To decrease pain, To decrease swelling/inflammation, To improve nutrient delivery to tissue and To increase oxygenation perfusion Re-Evaluation Ending Re-evaluation ending: Please do not hesitate to contact me at [phone] by phone or if you have questions or concerns regarding this new plan of care! Sincerely, MAUDE Kaiser
--- NOTE | 2023-01-18 16:22 | HP.PTDCSUM ---
Discharge Summary D/C summary: It has been my pleasure to treat EMRE BERMAN referred by Dr. Marcos Louis DO, with the diagnosis of L Pain in upper arm for a total of 13 visit(s). Discharge Date: Please see the following information for a summary of their discharge status. Subjective Subjective: Patient reports that the arm is 99.9% better. No issues- back to golfing and everything she wants to do Pain L shoulder: Pain Intensity (Out of 10): 0 Overall Improvement % Improvement: 99 Objective Objective/Function: Posture: good throughout ROM: WFL in all planes Strength: WNL in all planes- Scap: good Goals Goal 1:: I HEP Goal Progress: Goal Met Goal 2:: Be able to raise her L arm into full AROM with pain free Goal Progress: Goal Met Goal 3:: Increase L shoulder strength (at time of the eval: R flexion 16.3, abd 14.6, ER 15.3, IR 11.6 L flexion 8.1, abd 9.1, ER 12.2, IR 11.7) Goal Progress: Goal Met Goal 4:: Pt to be more aware of her posture throughout the day and sleeping posture Goal Progress: Goal Met Goal 5:: Increase L arm AROM (at the time of the eval: R shoulder flex 180, R shoulder abd, 180, ER 72, IR to T12 L shoulder flex 150, L shoulder ABD, 170 (painful arc but can push past the 120), ER 60, IR to T 12) Goal Progress: Goal Met Plan Plan: 2X/ week for 8 weeks for L shoulder AAROM/AROM, RC and scapular strength, postural exercises with HEP. D/C Information d/c sentence: If there are questions or concerns regarding this patient's physical therapy, please feel free to call me at [phone]. Thank you for the referral of this patient. Sincerely, Lisset Clancy, DPT Balance/Gait/Functional tests Balance/Special Test Scores Quick DASH Score: 15.9075
--- NOTE | 2023-01-18 16:22 | HP.PTEVAL_ITS ---
Patient's Visit Information Visit Information Visit Information: EMRE BERMAN is a 52 year old F referred to Physical Therapy by Dr. Marcos Louis DO with a diagnosis of L Pain in upper arm. Date of Evaluation: 11/23/22 Physical Therapist: Lisset Clancy DPT Visit Plan Frequency: 2x /Week Duration: 6 Weeks Plan: 2X/ week for 8 weeks for L shoulder AAROM/AROM, RC and scapular strength, postural exercises with HEP. Subjective Subjective: Pt notices that she had arm pain when she raises her arm above her head to sleep it would hurt. Now it is stiff and her ROM has decreased. She has not golfed this year because she wants to get it checked out before she golfs. She has N&T in her L fingers. She is not 100% sure it is related to her shoulder. She can sleep on her l shoulder. The pain is down the lateral arm. She has no pain in the actual shoulder joint itself. She is R handed. She does not feel weakness in her L arm. She has no neck pain. Icing does not help. Pain L shoulder: Pain Intensity (Out of 10): 0 Comment: 1-2 when has pain Objective Objective: R handed: R 90# L 65# UE MMT: R flexion 16.3, abd 14.6, ER 15.3, IR 11.6 L flexion 8.1, abd 9.1, ER 12.2, IR 11.7 UE AROM: R shoulder flex 180, R shoulder abd, 180, ER 72, IR to T12 L shoulder flex 150, L shoulder ABD, 170 (painful arc but can push past the 120), ER 60, IR to T 12 Posture: sit with rounded shoulders and slightly fw head HK L Questionable Empty can -L Palpation: No tenderness under the acromion or on the lateral arm. Neck AROM: Flexion 100%, Ext 75%, SB 100% B, Rot B 100% Bicep reflex 2+/3 B Balance/Special Test Scores Quick DASH Score: 15.9075 Goals Goal 1:: I HEP Goal Time Frame: 4-6 Weeks Goal 2:: Be able to raise her L arm into full AROM with pain free Goal Time Frame: 4-6 Weeks Goal 3:: Increase L shoulder strength (at time of the eval: R flexion 16.3, abd 14.6, ER 15.3, IR 11.6 L flexion 8.1, abd 9.1, ER 12.2, IR 11.7) Goal Time Frame: 4-6 Weeks Goal 4:: Pt to be more aware of her posture throughout the day and sleeping posture Goal Time Frame: 4-6 Weeks Goal 5:: Increase L arm AROM (at the time of the eval: R shoulder flex 180, R shoulder abd, 180, ER 72, IR to T12 L shoulder flex 150, L shoulder ABD, 170 (painful arc but can push past the 120), ER 60, IR to T 12) Goal Time Frame: 4-6 Weeks Rehabilitation Potential Rehabilitation Potential: Good Anticipated Interventions Patient/Client Instruction: Educate patient on: Condition and Plan of Care For the Purpose of:: To decrease pain, To increase ROM, To improve nutrient delivery to tissue, To improve muscle performance and motor function, To improve ability to perform ADL's, To increase tolerance to activity/condition/position, To improve performance and independence with ADL's, To decrease level of supervision to perform tasks, To improve ability of physical actions for home/community/work/leisure, To improve health of tissue, To decrease soft ti ssue restriction and To increase flexibility/ROM Therapeutic Exercise to Include: Strength training, Postural training, Flexibilty training, Neuromotor development, Passive ROM, Active ROM and Scapular Strength/Stabilization For the Purpose of:: To decrease pain, To decrease swelling/inflammation, To increase ROM, To improve nutrient delivery to tissue, To improve muscle performance and motor function, To improve ability to perform ADL's, To increase tolerance to activity/condition/position, To improve performance and independence with ADL's, To decrease level of supervision to perform tasks, To improve ability of physical actions for home/community/work/leisure, To improve health of tissue, To decrease soft tissue restriction and To increase flexibility/ROM IF ES: Yes (PRN) Cryotherapy (ice pack, ice massage): Yes (PRN) Thermo therapy (hot pack): Yes (PRN) Ultrasound (thermal/non thermal): Yes (PRN) For the Purpose of:: To decrease pain, To decrease swelling/inflammation, To improve nutrient delivery to tissue and To increase oxygenation perfusion Text: Thank you for the opportunity to evaluate your patient. For Medicare and Medicare HMO plans, please review the plan of care and approve it. It will need to be FAXED BACK to us at [phone] for Medicare purposes. For Medicare only, by signing this I certify the plan of care. Please let me know if there are questions or concerns regarding this plan of care. Physician Signature: Date:
== END 2023-01-18 19:00 | disposition home or self-care (01) ==
LOC: PT 16:00
PROVIDERS: PCP Nurse Practitioner Family; Referring Provider Family Medicine; Visit Provider Family Medicine
DX: M79.622 Pain in left upper arm (principal)
CPT/HCPCS: 97110; 97161; 97164; 97530

== ENCOUNTER 2023-06-05 18:41 | Emergency (ER) | payer SELFPAY ==
[2023-06-05 18:43] VITALS: BP 145/97; PULSE 82; RESP 14; TEMP 36.3; O2SAT 100
--- NOTE | 2023-06-05 18:52 | EX.ED.GENINJ ---
HPI History of Present Illness Chief Complaint: Head Injury Detail of Chief Complaint: Blunt head trauma frontal area complaining of occipital pain with severe DAVILA Informant: patient and spouse/S.O. Onset/Context/Timing Onset: Hours Mechanism/Context: Blunt Injury Location: Occiput Maximum Severity: Severe Associated Symptoms Associated Symptoms: Negative for Parasthesias, Weakness, Loss of function, Inability to ambulate, Loss of consciousness or Amnesia Narrative Narrative: Is a 53-year-old woman who is on vitamins only. She is on no antithrombotic or anticoagulant. She hit her frontal region on door jam. This happened several hours ago. She now presents with persistent nausea and vomiting and severe occipital headache. She denies double vision, blurred vision loss of vision. She vomited 3 times during my short time with her to perform history and physical. She denies ringing or ears decreased hearing. She denies visual disturbance. She denies paresthesia, anesthesia motors. She denies problems with balance. She denies problems with speech or swallowing. Tetanus Immunization: Unknown Prior similar symptoms: No Recent Illness/Hospitalization: No PFSH PFSH Home Medications cholecalciferol (vitamin D3) 50 mcg (2,000 unit) tablet 5,000 unit PO DAILY VITAMIN 05/20/13 [History Last Taken 05/19/13 500 units] dextroamphetamine-amphetamine ER 30 mg 24hr capsule,extend release 1 tab PO DAILY ADHD 10/31/18 [History Last Taken Unknown] L.acidoph, paracasei,B. lactis 10 billion cell capsule 1 ea PO DAILY SUPPLEMENT 01/03/19 [History Last Taken Unknown] magnesium oxide 400 mg PO DAILY SUPPLEMENT 01/03/19 [History Last Taken Unknown] vitamin B complex 1 ea PO DAILY SUPPLEMENT 01/03/19 [History Last Taken Unknown] ondansetron 4 mg disintegrating tablet 4 mg PO Q8H PRN PRN Nausea #6 tabs 06/05/23 [Rx Last Taken Unknown] Allergy/AdvReac Type Severity Reaction Status Date / Time No Known Allergies Allergy Verified 06/05/23 18:43 Surgical History History of bilateral breast biopsy (~12/2022) Social History (Updated 06/05/23 @ 18:[address] Tom Dawson MD) household members: spouse Smoking Status: Never smoker ROS ROS ED Constitutional Constitutional ED: Denies chills, fever(s), subjective, sweats or weight loss Eyes Eyes: Denies blurry vision or change in vision ENT ENT ED: Denies ear pain, rhinorrhea or sore throat Cardiovascular Cardiovascular: Denies chest pain, palpitations or racing heartbeat Respiratory/Chest Respiratory/Chest: Denies cough, dyspnea or dyspnea on exertion Gastrointestinal Gastrointestinal: Reports nausea and vomiting; Denies abdominal pain Musculoskeletal Musculoskeletal: Denies arthralgias, back pain, myalgias or neck pain Neurologic Neurologic: Reports headache(s); Denies paresthesias Endocrine Endocrinology: Denies cold intolerance or heat intolerance Hematologic/Lymphatic Hematologic/Lymphatic: Denies easy bleeding or easy bruising EXAM Physical Exam Const Vital Signs: 06/05/23 18:43 06/05/23 19:55 06/05/23 19:57 Temperature 97.3 F L Temperature Source Temporal Pulse Rate 82 78 Respiratory Rate 14 16 Respiratory Effort Normal Respiratory Pattern Normal Blood Pressure 145/97 H 147/75 H Blood Pressure Mean 113 99 Pulse Ox 100 100 Oxygen Delivery Method Room Air Room Air Positive well nourished and well developed Constitutional Narrative: Actively vomiting. General Appearance ED: well developed HEENT HEENT Narrative: No evidence of dental trauma. There is no clinical signs of basilar skull fracture. Nose: Negative for septum abnormal Eyes PERRL and EOMs intact bilaterally General Eye ED: Yes other Other Details: There is no subconjunctival hemorrhage. There is no nystagmus. Chest Wall inspection of chest normal and palpation of chest normal Resp normal respiratory effort and clear to auscultation bilaterally Cardio regular rhythm, S1 normal heart sound, S2 normal heart sound and no murmurs Rate: regular rate Back/Spine normal to inspection and no thoracic nor lumbar tenderness Extremity normal to inspection and full ROM General Extremety ED: Negative for deformity or edema General Extremity: Negative for deformity or edema Neuro oriented x3, CN's II-XII intact bilaterally, moves all extremities, no focal motor deficits and no sensory deficits noted Yeny Coma Scale: document GCS findings Spontaneous Obeys Commands Oriented 15 Sensorium / Orientation: alert Plantar Reflex: Downgoing: bilateral (No clonus right or left.) Psych mental status grossly normal Skin no rashes or lesions noted, no wounds, skin turgor normal and no jaundice MDM MDM MDM Narrative Medical decision making narrative: Head trauma severe headache nausea and vomiting is persistent/intractable will obtain CT of the head rule out subdural hematoma, epidural hematoma, traumatic subarachnoid hemorrhage or intraparenchymal contusion. IV was established. Patient was made NPO. Zofran was ordered for her nausea. Radiography Diagnostic Testing: Clinical Impression(s) from Imaging Studies Brain CT 06/05/23 19:00 IMPRESSION: Normal unenhanced CT scan of the brain. Electronically Signed: Vernon Blackmon DO at 19:21 EST , Contrast was reviewed by me at 1914. There is no evidence of intracranial bleed. There is no fluid in the sinuses. There is no evidence of fracture. Awaiting formal read by radiologist. Treatment and Re-Evaluation Narrative: Informed of my interpretation of the CAT scan. She still complain of severe headache. Since there is no evidence of intracranial bleed we will treat with IV morphine and Toradol. Patient was reassessed at 2124. She feels markedly better. She still slightly nauseous. Will discharge with prescription for Zofran. She is given a work excuse. Discharge Plan Triage Chief Complaint: Head Injury ED Provider: Tom Dawson Dx/Rx/DC Orders Clinical Impression: Acute post-traumatic headache, intractable, Intractable nausea and vomiting, Concussion without loss of consciousness, initial encounter Instructions: ED Concussion Prescriptions: New ondansetron [ondansetron] 4 mg tablet,disintegrating 4 mg PO Q8H PRN PRN (Reason: Nausea) Qty: 6 0RF No Action cholecalciferol (vitamin D3) 2,000 UNIT tablet 5,000 unit PO DAILY Patient Comments: SUPPLEMENT dextroamphetamine-amphetamine 30 MG capsule,extended release 24hr 1 tab PO DAILY Patient Comments: take 1 capsule by mouth every morning vitamin B complex 1 EACH capsule 1 ea PO DAILY magnesium oxide 400 MG capsule 400 mg PO DAILY Dhavalacidtasneem bahena B. lactis 1 EACH capsule 1 ea PO DAILY Stand Alone Forms: ED Work / School Excuse Primary Care Provider: Delicia Feldman Referrals: Delicia Feldman, [facility] [Primary Care Provider] - 10-14 Days if not better Disposition Disposition: Home, Self Care
--- NOTE | 2023-06-05 19:00 | CT_ITS ---
STUDY: CT BRAIN WITHOUT CONTRAST REASON FOR EXAM: Female, 53 years old. Head injury, persistent vomiting RADIATION DOSAGE (If Supplied By Facility): CTDIvol = ( 44.99 ) mGy, DLP = ( 762.36 ) mGycm TECHNIQUE: Transaxial CT imaging of the brain was performed without administration of intravenous contrast material. Individualized dose optimization techniques were used for this CT. COMPARISON: No relevant priors. FINDINGS: Normal soft tissue structures. Normal calvarium. Normal size ventricles and extra-axial spaces for the patient''s age. Normal white matter tracts of the cerebral hemispheres. Normal basal ganglia and thalami. Normal brainstem. Normal cerebellum. There is no intracranial hemorrhage. There are no findings of an acute ischemic infarction. Normal visualized paranasal sinuses. CT/Brain/Head without Contrast IMPRESSION: Normal unenhanced CT scan of the brain. Electronically Signed: Vernon Blackmon DO at 19:21 EST ,
[2023-06-05] MEDS: Ondansetron 4 MG/2 ML Vial IV (19:10)
[2023-06-05] MEDS: Morphine 4 MG/ML Syringe IV (19:51)
[2023-06-05] MEDS: Ketorolac 15 MG/ML Vial IV (19:51)
[2023-06-05 19:55] VITALS: BP 147/75; PULSE 78; RESP 16; O2SAT 100; BMI 27.6
[2023-06-05 21:57] VITALS: BP 140/70; BP 140/75; PULSE 71; RESP 16; RESP 18; O2SAT 100
[2023-06-05] MEDS: Ondansetron ODT 4 MG Tablet PO (22:19)
== END 2023-06-05 21:59 | disposition home or self-care (01) ==
PROVIDERS: Emergency Provider Emergency Medicine; PCP Nurse Practitioner Family; Visit Provider Emergency Medicine
DX: S06.0X0A Concussion without loss of consciousness, initial encounter (principal); R11.2 Nausea with vomiting, unspecified; W22.09XA Striking against other stationary object, initial encounter
CPT/HCPCS: 70450; 96374; 96375; 99283; A4216; J2405

== ENCOUNTER → 2023-06-30 | Outpatient (CLI) | payer BC, SELFPAY ==
--- NOTE | 2023-06-30 09:17 | US_ITS ---
STUDY: ULTRASOUND BREAST - BILATERAL REASON FOR EXAM: Female, 53 years old. History of follow-up for bilateral breast biopsy. TECHNIQUE: Axial and longitudinal images of the BILATERAL breast were performed with a high resolution ultrasound transducer. # OF IMAGES: [id number] COMPARISON: Comparison is made with prior examination dated November 28, 2022 of the right and left breasts. FINDINGS: BILATERAL Breast: A dominant cyst is seen at the 4:00 position of the right breast at 4 cm from the nipple it presently measures 1.4 cm x 1.87 x 1.1 cm. This is essentially unchanged. Stable 7 mm x 8 mm x 6 mm hypoechoic nodule at the 1:00 position of the breast at 3 cm from nipple. Stable hypodense nodule measuring 7 mm x 8 mm x 6 mm at the 10:00 position (6 7 from nipple. A tissue clip marker is seen adjacent to this. A dominant cyst measuring 2.6 x 2.5 cm x 2.4 cm and at the 4:00 position of the breast at 6 some nipple in the left breast. There is also evidence of a 2.1 cm x 2 cm x 1 point centimeter septated cyst at the 11:00 position of the breast at 3 cm from nipple. US/Breast Complete Unilateral IMPRESSION: Stable examination. ASSESSMENT CATEGORY: BIRADS Category 2: Benign. A letter regarding these results will be sent to the patient by the facility within 30 days. Electronically Signed: Torin Ceballos MD at 8:34 EST ,
== END | disposition home or self-care (01) ==
LOC: OPUS 09:16
PROVIDERS: PCP Nurse Practitioner Family; Referring Provider Physician Assistant; Visit Provider Physician Assistant
DX: Z98.890 Other specified postprocedural states (principal); N60.01 Solitary cyst of right breast; N60.02 Solitary cyst of left breast
CPT/HCPCS: 76641